=== PATIENT | male | born 1995 | race Caucasian/White ===

== ENCOUNTER 2019-09-07 13:33 | Emergency (ER) | payer SELFPAY ==
[2019-09-07 13:48] VITALS: BP 123/62; PULSE 56; RESP 16; TEMP 36.8; O2SAT 99; BMI 17.6
--- NOTE | 2019-09-07 14:03 | W.ED.EXTPRO ---
HPI - Extremity Problem General: Chief complaint: Extremity Problem,Nontraumatic Stated complaint: Right knee pain Time Seen by Provider: 09/07/19 14:03 Source: patient Mode of arrival: ambulatory Limitations: no limitations History of Present Illness: HPI Narrative: Patient comes in today with complaints of right knee pain. Patient reports he does not recall any injury. 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 Patient appears well. Patient appears in no acute distress. Patient appears in mild to moderate pain. Review of Systems General: Reports: 10 or more systems reviewed and unremarkable except in HPI and below Musc: Reports: joint pain PFSH ED PFSH: Statuses (acute, chronic, etc) shown below reflect problem list status as previously entered and may not be historically accurate Social History Smoking and tobacco status: current every day smoker Physical Exam Const: COMMON NORMALS: no apparent distress and oriented x3 GENERAL APPEARANCE: cooperative HENMT: COMMON NORMALS: normocephalic, external ears normal, EAC's normal, TM's normal bilaterally and external nose normal HEAD & SCALP: normal to inspection and normocephalic FACE & SINUS: normal facial exam NOSE: external nose normal GENERAL EAR: hearing not grossly impaired EXTERNAL EAR: Yes external ears normal EXTERNAL AUDITORY CANAL: EAC's normal TYMPANIC MEMBRANE: TM's normal bilaterally MOUTH: oral and palatal mucosa normal THROAT: posterior oropharynx normal Eye: COMMON NORMALS: PERRL and EOMs intact bilaterally PUPIL: Yes PERRL Neck/C-Spine: COMMON NORMALS: full ROM and no lymphadenopathy Lymph: LYMPHATIC: no lymphedema noted Chest: COMMONS NORMALS: inspection of chest normal and palpation of chest normal Resp: COMMON NORMALS: normal respiratory effort and clear to auscultation bilaterally AUSCULTATION: clear to auscultation bilaterally Cardio: COMMON NORMALS: regular rate and regular rhythm RATE: regular rate RHYTHM: regular rhythm GI: COMMON NORMALS: normal to inspection, nondistended, normoactive bowel sounds and non-tender : COMMON NORMALS: Yes no CVA tenderness BLADDER/KIDNEY EXAM: Yes no CVA tenderness Back/Pelvis: COMMON NORMALS: no CVA tenderness and thoracic and lumbar spine normal to inspection Extremity: COMMON NORMALS: normal to inspection GENERAL: No edema RIGHT LOWER EXTREMITY: Yes knee joint (lateral knee pain) Neuro: COMMON NORMALS: oriented x3, moves all extremities and no focal motor deficits Psych: COMMON NORMALS: mental status grossly normal and cooperative Skin: COMMON NORMALS: no rashes or lesions noted GENERAL SKIN EXAM: no rashes or lesions noted Course Vital Signs: Vital signs: Vital Signs Temperature 97.7 F 09/07/19 15:14 Pulse Rate 66 09/07/19 15:14 Respiratory Rate 16 09/07/19 15:14 Blood Pressure 110/72 09/07/19 15:14 Pulse Oximetry 98 09/07/19 15:14 MDM - Extremity (Nontraumatic) MDM Narrative: Medical decision making narrative: Patient comes in today with right knee pain. On exam we note palpation of the lateral right knee joint line is tender. Patient has good range of motion but is limited on flexion and extension. Distal pulses are normal. No obvious swelling or redness is noted. Differential diagnosis includes strain or sprain, tendinitis, meniscal injury, contusion. X-ray noted no significant abnormality. Reviewed exam with patient recommended treatment with diclofenac and acetaminophen. Recommend patient keep active as much as possible and reassured patient that most pain will resolve in 7 to 10 days. Patient reports understanding and agreed to plan. Discharge Plan Discharge Patient Disposition: Home, Self-Care Clinical Impression: Knee pain, right Qualifiers: Chronicity: acute Qualified Code(s): M25.561 - Pain in right knee Condition: Stable Prescriptions: New diclofenac sodium 75 mg tablet,delayed release (DR/EC) 75 mg PO BID Qty: 20 RF: 0 Discharge Orders: Discharge Order (Routine); Ordered 09/07/19 Ordered By: Dionisio Griffin Discharge Diet: Usual diet Discharge Activity: Increase activity as tolerated Patient Instructions: Knee Pain (ED) Activity Restrictions/Additional Instructions: Activity as tolerated Acetaminophen for further pain relief Ice and heat for further comfort Take medication as directed Do no use ibuprofen with diclofenac Follow-up with primary care in one week Discharge Date/Time: 09/07/19 15:54 Coding Level of Care Code ED Respiratory Therapist Assistant for Pablo Garnett Exam Problem Focused
[2019-09-07 14:17] VITALS: BP 114/73; PULSE 56; RESP 16; TEMP 36.6; O2SAT 98
--- NOTE | 2019-09-07 14:30 | XR_ITS ---
WS: [id number] Right knee, 3 views, 09/07/2019 Clinical Data: pain Comparison: None. Findings: No fractures or dislocations are seen. The joint spaces are normal. The patella is intact. The soft t issues are unremarkable. XR/XR knee RT 3V* [id number] Impression: Negative right knee.
[2019-09-07 14:35] VITALS: PULSE 56
[2019-09-07 15:14] VITALS: BP 110/72; PULSE 66; RESP 16; TEMP 36.5; O2SAT 98
== END 2019-09-07 15:54 | disposition home or self-care (01) ==
PROVIDERS: Emergency Provider Nurse Practitioner Family
DX: M25.561 Pain in right knee (principal); F17.210 Nicotine dependence, cigarettes, uncomplicated
CPT/HCPCS: 73562; 99281; 99282

== ENCOUNTER 2021-06-05 16:56 | Inpatient (IN) | payer SELFPAY ==
[2021-06-05 17:17] VITALS: PULSE 54; RESP 16; TEMP 36.8; O2SAT 99
--- NOTE | 2021-06-05 17:26 | W.ED.GENADLT ---
HPI - General Adult General: Chief complaint: Psychiatric Symptoms Stated complaint: LAC R INDEX FINGER Time Seen by Provider: 06/05/21 17:24 History of Present Illness: HPI narrative: HPI: [26]yo patient w/ hx of depression and wrist cutting presenting for SI. On arrival, the patient is AAOx3 and cooperative with my evaluation. No focal complaints of chest pain, shortness of breath, palpitations, N/V, focal GI/ complaints. No complaints of hallucinations. Onset: chronic Duration: ongoing Location: home Severity: severe Review of Systems Narrative: Constitutional: No fever, no chills. HEENT: No vision changes CV: No chest pain, no palpitations PULM: No productive cough, no dyspnea. GI: No abdominal pain, no N/V/D. : No dysuria MSKEL: No muscle pain SKIN: No new rashes, no lesions. NEURO: No headache, no focal weakness. HEME: No visible bruises PSYCH: Normal mood, +SI PFSH ED PFSH: Social History Smoking and tobacco status: current every day smoker Physical Exam Narrative: EXAM NARRATIVE: Head: Atraumatic Eyes: PERRL, conjunctiva without injection, eyes tracking ENT: Mucous membrane moist NECK: Supple without lymphadenopathy LUNGS: LCTAB CV: RRR ABDOMEN: Soft, nontender EXTREMITY: Normal ROM SKIN: No rash or erythema NEURO: Awake and alert. No focal weakness PSYCH: Cooperative mood and affect. Course Vital Signs: Vital signs: Vital Signs Temperature 98.2 F 06/05/21 17:17 Pulse Rate 54 L 06/05/21 17:17 Respiratory Rate 16 06/05/21 17:17 Pulse Oximetry 99 06/05/21 17:17 MDM - General Adult MDM Narrative: Medical decision making narrative: 26yo patient w/ hx of depression and self cutting presenting for SI. HDS, exam within normal limit Thoughts are linear and organized, and the patient has no AH/VH, or HI. Clinically the patient displays no overt toxidrome; they are well appearing, with low suspicion for toxic ingestion given history and exam. Symptoms unlikely 2/2 anemia, hypothyroidism, infection, or ICH. Workup: CBC, CMP, Lipase, salicylate/tylenol, UDS Lab findings: wnl [6:30pm] On reassessment, labs and workup wnl. Patient is hemodynamically stable with no acute medical complaints. Case discussed with psychiatric provider Dr. Loya at [facility] psych inpatient with recommendation for admission Disposition: Psych Discharge Plan Discharge Patient Disposition: Admitted As Inpatient Clinical Impression: Suicidal ideations Condition: Stable Coding Level of Care Code ED Med Spa Manager for Pablo Garnett
[2021-06-05 17:57] VITALS: BP 121/78; PULSE 58; RESP 16; O2SAT 98
[2021-06-05 18:02] LABS: Basophils # 0.1 10^3/uL (0.0-0.1); Basophils % 0.7 %; Eosinophils # 0.1 10^3/uL (0.0-0.8); Eosinophils % 1.8 %; Hematocrit 39.5 % (42.0-52.0); Hemoglobin 13.9 g/dL (11.7-16.6); Lymphocytes # 2.4 10^3/uL (0.8-4.8); Lymphocytes % 30.9 %; Mean Corpuscular HGB Conc 35.2 g/dL (30.0-36.0); Mean Corpuscular Hemoglobin 32.5 pg (28.0-34.0); Mean Corpuscular Volume 92.3 fl (80-94); Mean Platelet Volume 9.8 fL (7.4-10.4); Monocytes # 0.5 10^3/uL (0.2-0.9); Monocytes % 6.5 %; Neutrophils # 4.59 10^3/uL (1.8-7.7); Neutrophils % 59.7 %; Nucleated Red Blood Cells % 0 %; Platelet Count 226 10^3/cmm (130-400); Red Blood Count 4.28 10^6/uL (4.1-5.3); Red Cell Distribution Width 12.2 % (12.1-15.1); White Blood Count 7.7 10^3/uL (4.0-10.0)
[2021-06-05 18:13] LABS: Amphetamines Screen Urine Negative (Negative); Barbiturates Screen Urine Negative (Negative); Benzodiazepines Screen Urine Negative (Negative); Cocaine Screen Urine Negative (Negative); Opiate Screen Urine Negative (Negative); PCP Screen Urine Negative (Negative); THC Screen Urine Positive (Negative)
[2021-06-05 18:19] LABS: Anion Gap 14.6 (5-19); Blood Urea Nitrogen 16 mg/dL (6-20); Calcium 9.3 mg/dL (8.5-10.5); Carbon Dioxide 26 mmol/L (22-29); Chloride 103 mmol/L (98-107); Glomerular Filtration Rate 161.6 mL/min (90-130); Glucose 80 mg/dL (65-115); Osmolality Calculated 290 mOsm/kg (285-295); Potassium 3.6 mmol/L (3.5-5.1); Sodium 140 mmol/L (136-145)
[2021-06-05 18:20] LABS: Acetaminophen < 5.0 ug/mL (10-30); Salicylate < 0.3 mg/dL (3-10)
[2021-06-05] MEDS: LORazepam 1 mg Tablet PO (18:59)
[2021-06-06 00:01] VITALS: BP 128/78; PULSE 78; RESP 18; O2SAT 99
--- NOTE | 2021-06-06 01:38 | PC.ADMIT ---
[address] Admission Note: The patient,Chucho Capellan,26 y/o, was given written information regarding hospital policies, unit procedures and contact persons. Patient's smoking status: current every day smoker. Vital Signs - 8 hr 06/05/21 17:57 06/06/21 00:01 Pulse Rate 58 L 78 Respiratory Rate 16 18 Blood Pressure 121/78 128/78 Pulse Oximetry 98 99 [26]yo patient w/ hx of depression and wrist cutting presenting for SI. On arrival, the patient is AAOx3 and cooperative with my evaluation. No focal complaints of chest pain, shortness of breath, palpitations, N/V, focal GI/ complaints. No complaints of hallucinations. Upon assessment patient has poor eye contact, is alert/oriented x4. Poor hygiene. Patient has flat affect, rates depression 9, anxiety 7. Denies any SI/HI, a/v hallucinations. Patient states he has had increased depression and SI for the last 2 months. He states his father was diagnosed with stage 4 CA. Patient states he has seen a therapist as an outpatient for quite some time but he has never been prescribed any medications for depression. He states he was diagnosed as Bipolar a few months ago. Patient reports that earlier tonight he used a razor to make some superficial lacerations to his right wrist and then afterward accidentally cut his right index finger. He rates the pain 7 to right index finger. He states that his is his support system. They have 3 children under the age of 5. Patient works as a night shift manager at [employer] and his stays home with the children. He reports that approx 8 yrs ago he tried to hang himself with a belt in his closet and the pole broke. He also states that 10 yrs ago he put a gun in his mouth wanting to commit suicide. Patient has never had an admission to a psychiatric facility. Skin assessment unremarkable other than superficial lacs to right anterior forearm. Patient has bandaid on right index finger. Patient offered snack and drink, he declined and retired to bed. Will continue to monitor and follow plan of care. q 15 min safety checks per protocol.
[2021-06-06 06:00] VITALS: BP 119/76; PULSE 83; RESP 18; TEMP 36.7; O2SAT 98
[2021-06-06] MEDS: nicotine 2 mg Gum BUCCAL ×6 (08:35→20:31)
--- NOTE | 2021-06-06 13:38 | NPU.GN ---
[facility] Group Topic:Dice Breaker Psych Education General Mood of Group: Chucho did attend and participate in group this morning. Chucho seemed to enjoy group and socialized with this fiction and nonfiction prose writer and others in group. Chucho seems as though he has the willingness and drive to get better for his children and self and signed up for [facility] services with [facility] the aide of this fiction and nonfiction prose writer.
[2021-06-06 14:00] VITALS: BP 127/82; PULSE 72; RESP 18; TEMP 36.7; O2SAT 98
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
[2021-06-06] MEDS: trazodone 50 mg Tablet PO (20:30)
[2021-06-06 21:58] VITALS: BP 117/64; PULSE 70; RESP 17; TEMP 36.6; O2SAT 99
--- NOTE | 2021-06-06 23:29 | PC.NURSE ---
Upon assessment patient in day room playing board game with peers. Patient has good eye contact, is smiling and friendly. Patient denies any depression, rates anxiety 6. Denies any SI/HI, hallucinations. He states he did attend group today and is feeling much better after talking to his on the phone a few times today. Patient states he plans to see a therapist as an outpatient once he is discharged. He states he is looking forward to going home. Will continue to monitor and follow plan of care. Q 15 min safety checks per protocol.
[2021-06-07 06:00] VITALS: BP 118/72; PULSE 67; RESP 17; TEMP 36.7; O2SAT 98
[2021-06-07] MEDS: nicotine 2 mg Gum BUCCAL ×7 (06:23→19:20)
[2021-06-07] MEDS: hyDROXYzine 25 mg Capsule 50 MG PO (08:12)
[2021-06-07 14:00] VITALS: BP 118/72; PULSE 67; RESP 17; TEMP 36.7; O2SAT 98
[2021-06-07] MEDS: OLANZapine 5 mg ODT PO (16:28)
--- NOTE | 2021-06-07 17:06 | PC.NURSE ---
Patient gave staff permission to speak with his mother. Mother states she doesn't have concerns about patient being discharged. states she does not feel he will hurt anyone and that they have a good relationship and she feels he will reach out to her if/when he feels depressed again. stated again she had no fears or concerns about him being discharged.
[2021-06-07] MEDS: haloperidol 5 mg Tablet PO (17:08)
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
[2021-06-07 19:05] VITALS: BP 118/72; PULSE 67; RESP 17; TEMP 36.7; O2SAT 98
== END 2021-06-07 19:33 | disposition home or self-care (01) | DRG 882 ==
LOC: ER 17:40 → NP 06-06 06:20
PROVIDERS: Admitting Provider Psychiatry & Neurology Psychiatry; Emergency Provider Emergency Medicine; Visit Provider Psychiatry & Neurology Psychiatry
DX: F43.25 Adjustment disorder with mixed disturbance of emotions and conduct (principal); R45.851 Suicidal ideations; F17.210 Nicotine dependence, cigarettes, uncomplicated; F12.90 Cannabis use, unspecified, uncomplicated; Z91.52 Personal history of nonsuicidal self-harm; Z81.8 Family history of other mental and behavioral disorders; Z62.810 Personal history of physical and sexual abuse in childhood
CPT/HCPCS: 80048; 80306; 80307; 85025; 97165; 99285

== ENCOUNTER → 2021-12-11 13:36 | Outpatient (BNVA) | payer OTHER, SELFPAY | PROVIDERS: Visit Provider Psychiatry & Neurology Psychiatry | DX: F33.2 Major depressive disorder, recurrent severe without psychotic features (principal); F41.9 Anxiety disorder, unspecified; Z79.899 Other long term (current) drug therapy | CPT/HCPCS: 80053; 80061; 83036; 84443; 85025 ==

== ENCOUNTER 2022-11-25 19:29 | Emergency (ER) | payer OTHER, SELFPAY ==
[2022-11-25 19:29] VITALS: BP 128/75; PULSE 69; RESP 19; TEMP 36.7; O2SAT 99; BMI 19.5
--- NOTE | 2022-11-25 19:38 | W.ED.DENTAL ---
HPI - Dental/Oral General: Chief complaint: Dental/Oral Stated complaint: Throat Pain Time Seen by Provider: 11/25/22 19:38 History of Present Illness: 27-year-old male patient comes in today for complaints of left lower jaw pain and swelling. Patient reports discomfort for the last 2 to 3 days. Patient comes in today due to increased swelling in the area. Patient is able to speak without difficulty. Patient is managing secretions well. Patient has a history of an arachnoid cyst but otherwise negative. Associated symptoms: Denies fever(s) Review of Systems General: Reports: 10 or more systems reviewed and unremarkable except in HPI and below Const: Denies: fever(s) ENMT: Reports: dental pain Resp: Denies: dyspnea GI: Denies: vomiting Musc: Denies: neck pain Skin/Breast: Denies: rash PFSH ED PFSH: Medical History Lost custody of children Social History Smoking and tobacco status: current every day smoker Physical Exam HENMT: HEAD & SCALP: other (Swelling left lower jaw area) MOUTH: other (Swelling lateral gingiva left lower jaw first molar) TEETH & GINGIVA: Yes caries (Carious tooth to the left first lower molar) Neck/C-Spine: COMMON NORMALS: full ROM Resp: COMMON NORMALS: normal respiratory effort and clear to auscultation bilaterally AUSCULTATION: clear to auscultation bilaterally Cardio: COMMON NORMALS: regular rate and regular rhythm RATE: regular rate RHYTHM: regular rhythm GI: COMMON NORMALS: non-tender Extremity: COMMON NORMALS: no pedal edema Skin: COMMON NORMALS: turgor normal GENERAL SKIN EXAM: turgor normal Course Vital Signs: Vital signs: Vital Signs Temperature 98.0 F 11/25/22 19:29 Pulse Rate 69 11/25/22 19:29 Respiratory Rate 19 H 11/25/22 19:29 Blood Pressure 128/75 11/25/22 19:29 Pulse Oximetry 99 11/25/22 19:29 Oxygen Delivery Me thod Room Air 11/25/22 19:29 MDM - Dental/Oral Medical Decision Making 27-year-old male patient comes in today for complaints of jaw pain and facial swelling. On exam patient has a carious tooth to the left lower first molar. Surrounding lateral gingival tissue is swollen and erythematous. Posterior pharynx is symmetrical, patient manages secretions well. Vital signs are normal. Differential diagnosis includes but not limited to dental caries, dental abscess, periodontal disease. Reviewed exam with patient with recommendations for treatment and follow-up. Patient was started on Augmentin for dental abscess. Patient was recommended use acetaminophen and/or ibuprofen to control pain. Use hydrocodone for severe pain. Patient was recommended to follow-up with dentist for definitive care. Patient reported understanding. Discharge Plan Discharge Patient Disposition: Home Clinical Impression: Dental abscess Condition: Stable Prescriptions: New hydrocodone-acetaminophen 5-325 mg tablet 1 tab PO Q8H PRN (Reason: pain) Qty: 6 0RF amoxicillin-pot clavulanate 875-125 mg tablet 1 tab PO BID Qty: 14 0RF No Action aripiprazole 5 mg tablet See Rx Instructions .ROUTE .COMPLEX 30 Days Qty: 30 3RF Rx Instructions: take a-half tab po q hs x 8 days then take a whole tab po q hs if tolerated Discharge Orders: Discharge ED (Routine); Ordered 11/25/22 Ordered By: Dionisio Griffin Discharge Diet: Usual diet Discharge Activity: Increase activity as tolerated Patient Instructions: Dental Abscess (ED), Opioid Safety Activity Restrictions/Additional Instructions: Take antibiotic as directed. Healthy diet and activity. Good oral hygiene. Ice or heat for further pain relief. Use acetaminophen and ibuprofen to control pain. Use hydrocodone for severe pain. Follow-up with dentist for definitive care. Coding Level of Care Code ED Transport Technician for Pablo Garnett
[2022-11-25] MEDS: HYDROcodone-acetaminophen 5-325 mg Tablet 1 TAB PO (20:23)
[2022-11-25] MEDS: amoxicillin-clav 875-125 mg Tablet 1 TAB PO (20:24)
--- NOTE | 2022-11-27 13:04 | DCPLANNER ---
customer account manager called patient due to no primary care physician - no answer at this time.
== END 2022-11-25 20:27 | disposition home or self-care (01) ==
PROVIDERS: Emergency Provider Nurse Practitioner Family
DX: K04.7 Periapical abscess without sinus (principal); F17.210 Nicotine dependence, cigarettes, uncomplicated
CPT/HCPCS: 99283

== ENCOUNTER 2023-06-01 11:01 | Emergency (ER) | payer SELFPAY ==
[2023-06-01 11:21] VITALS: BP 120/67; PULSE 52; RESP 18; TEMP 36.8; O2SAT 99; BMI 19.5
--- NOTE | 2023-06-01 12:51 | W.ED.EXTPRO ---
HPI - Extremity Problem General: Chief complaint: Extremity Problem,Nontraumatic Stated complaint: right arm pain Time Seen by Provider: 06/01/23 11:09 Source: patient Mode of arrival: ambulatory Limitations: no limitations History of Present Illness: Patient is a 28-year-old male who presents to ED today with complaint of pain around his right elbow. Patient states approximately 3 days ago on a Wednesday night he was arm wrestling. He denies injuring it during any type of arm wrestling match but states Wednesday morning he woke up with pain. Patient states yesterday he was picking up one of his kids when he immediately felt a pop/snap to his right elbow/AC region. He states since then he has been unable to flex the elbow. Denies swelling/ecchymosis. MD Complaint: extremity pain and joint pain Onset (ago): day(s) Pain Consistency: constant Location: right, upper extremity and elbow Radiation: none Relieving factors: immobilization Exacerbating factors: range of motion Associated symptoms: Reports no associated symptoms; Deny fever(s) Review of Systems Const: Denies: fever(s), chills, body aches, fatigue or malaise Musc: Reports: joint pain (R elbow) and limited range of motion; Denies: neck pain, back pain, joint swelling, joint redness, joint warmth, joint stiffness, muscle cramps, muscle weakness, decrease in muscle mass or deformity Neuro: Denies: numbness in extremities or sensory changes PFS ED PFSH: Medical History Lost custody of children Social History Smoking and tobacco/nicotine status: current every day tobacco/nicotine user Physical Exam Const: COMMON NORMALS: no acute distress, average body habitus, patient oriented x3, no limitations, alert and well nourished Extremity: COMMON NORMALS: capillary refill normal, no joint enlargement, no clubbing, cyanosis or edema, no calf tenderness and no pedal edema GENERAL: Yes normal exam except as noted RIGHT UPPER EXTREMITY: Yes elbow joint Right elbow: Yes palpation (TTP volar R elbow/radial head), Yes ROM (cannot flex R elbow against any form of resistance ), Yes neurovascular exam (normal) and Yes other (no obvious reverse kelli deformity noted) Neuro: COMMON NORMALS: patient oriented x3, moves all extremities, no focal motor deficits and no sensory deficits noted SENSORIUM/ORIENTATION: Yes alert Course Vital Signs: Vital signs: Vital Signs Temperature 98.2 F 06/01/23 11:21 Pulse Rate 60 06/01/23 13:47 Respiratory Rate 18 06/01/23 11:21 Blood Pressure 116/65 06/01/23 13:47 Pulse Oximetry 100 06/01/23 13:47 Oxygen Delivery Me thod Room Air 06/01/23 11:21 MDM - Extremity (Nontraumatic) Medical Decision Making XR negative. I think given history and exam I would be concerned for injury to his distal bicep. Will have him start doing compression wraps/NSAIDS and have him follow up with orthopedics. Lab Data Radiology Impressions Elbow X-Ray 06/01/23 12:58 IMPRESSION: No acute findings. All radiology interpretation(s) finalized by discharge Discharge Plan Discharge Patient Disposition: Home Clinical Impression: Tear of distal tendon of biceps Qualifiers: Encounter type: initial encounter Laterality: right Qualified Code(s): S46.211A - Strain of muscle, fascia and tendon of other parts of biceps, right arm, initial encounter Condition: Stable Prescriptions: New ibuprofen 600 mg tablet 600 mg PO Q6H PRN (Reason: pain) Qty: 20 0RF No Action amoxicillin-pot clavulanate 875-125 mg tablet 1 tab PO BID Qty: 20 0RF Discharge Orders: Discharge ED (Routine); Ordered 06/01/23 Ordered By: Alma Branch Referrals: Monique Carter NP [Primary Care Provider] - Activity Restrictions/Additional Instructions: As we discussed based on your exam today I suspect that you may have an injury to your distal bicep tendon. I have placed a referral with case management to get you set up with orthopedics for further evaluation for this. They should reach out to you later this week to set you up with this appointment. Coding Level of Care Code ED Residential Treatment Staff for Pablo Garnett
--- NOTE | 2023-06-01 12:58 | XRR_ITS ---
PROCEDURE INFORMATION: Exam: XR Right Elbow Exam date and time: 06/01/2023 1:03 PM Age: 28 years old Clinical indication: Injury or trauma; Other: Wrestling; Swelling (edema); Elbow; Right TECHNIQUE: Imaging protocol: Radiologic exam of the right elbow. Views: 3 or more views. COMPARISON: No relevant prior studies available. FINDINGS: Bones/joints: Normal. Soft tissues: Normal. XR/XR elbow RT min 3V* [id number] IMPRESSION: No acute findings.
[2023-06-01 13:47] VITALS: BP 116/65; PULSE 60; O2SAT 100
--- NOTE | 2023-06-02 08:00 | DCPLANNER ---
message sent to Ortho for a follow up on a distal bicep tear/rupture
== END 2023-06-01 13:49 | disposition home or self-care (01) ==
PROVIDERS: Emergency Provider Physician Assistant; PCP Nurse Practitioner Family
DX: S46.211A Strain of muscle, fascia and tendon of other parts of biceps, right arm, initial encounter (principal); Z72.0 Tobacco use; X50.9XXA Other and unspecified overexertion or strenuous movements or postures, initial encounter
CPT/HCPCS: 73080; 99283

== ENCOUNTER → 2023-10-05 13:21 | Outpatient (BNVA) | payer SELFPAY | PROVIDERS: PCP Nurse Practitioner Family; Visit Provider Family Medicine | DX: M79.642 Pain in left hand (principal) | CPT/HCPCS: 73130 ==

== ENCOUNTER → 2023-11-12 11:18 | Outpatient (BNVA) | payer OTHER, SELFPAY | PROVIDERS: PCP Nurse Practitioner Family; Visit Provider Nurse Practitioner | DX: Z79.899 Other long term (current) drug therapy (principal); F43.25 Adjustment disorder with mixed disturbance of emotions and conduct; F10.20 Alcohol dependence, uncomplicated; F12.20 Cannabis dependence, uncomplicated; Z72.0 Tobacco use; F31.81 Bipolar II disorder | CPT/HCPCS: 80061; 83036 ==

== ENCOUNTER 2025-07-30 12:17 | Emergency (ER) | payer SELFPAY ==
[2025-07-30 12:55] VITALS: BP 113/75; PULSE 59; RESP 18; TEMP 36.7; O2SAT 99; BMI 20.7
--- NOTE | 2025-07-30 13:06 | XR_ITS ---
WS: [id number] Right hand, 3 views, 07/30/2025 Clinical Data: trauma Comparison: Right hand, 12/03/2014 Findings: There is a fracture of the ungual tuft of the distal phalanx of the right fourth finger. No other fractures are seen. The joint spaces are normal. The soft tissues are normal. XR/XR hand RT min 3V* [id number] Impression: Fracture of the ungual tuft of the distal phalanx of the right fourth finger.
--- NOTE | 2025-07-30 13:06 | ED_ITS ---
HPI - Wound/Laceration General: Chief Complaint: Wound/Laceration Stated Complaint: R hand ring finger lac Time Seen by Provider: 07/30/25 13:06 History of Present Illness: 30-year-old male presents emergency room with after crush injury to the tip of his right fourth finger while he was moving some wood around. He states his tetanus was within the last 2 to 3 years. No other injury. Related Data Previous Rx's ?Medication ?Instructions ?Recorded quetiapine 300 mg tablet,extended 300 mg PO .HS #30 ta bs 11/12/23 release 24 hr (Seroquel XR) sulfamethoxazole 800 1 tab PO BID 5 days #10 tabs 07/30/25 mg-trimethoprim 160 mg tablet (Bactrim DS) Allergies Allergy/AdvReac Type Severity Reaction Status Date / Time No Known Allergies Allergy Verified 11/12/23 09:32 [facility] ED PFSH: Medical History Bipolar II disorder, moderate, depressed, with anxious distress Vapes nicotine containing substance Cannabis dependence Alcohol dependence On combination antipsychotic drug therapy Lost custody of children Social History Smoking and tobacco/nicotine status: current some day tobacco/nicotine user Alcohol intake: current Alcohol intake frequency: holidays/special occasions only Substance/Drug Use: never Physical Exam Extremity: OTHER: Examination of the right fourth finger. Mild crush injury no nail deformity partial avulsion of the skin full-thickness approximately 2 cm in total length. Procedures Laceration Laceration 1: Site: hand Side (If applicable): right (Fourth finger) Size (cm): 3 Description: linear Depth: simple, single layer Pre-repair: irrigated extensively Skin layer closed with: nylon Size (cm): 4-0 Number of sutures: 3 Technique: simple, interrupted Nerve Block Nerve Block 1: Time out performed: Yes Local Anesthetic: lidocaine 1% Amount of anesthesia used (mL): 4 Side: right (Fourth finger) Nerve Blocks: digital Procedure Successful: Yes Patient Tolerated Procedure: well Complications: none Course Vital Signs: Vital signs: Vital Signs Temperature 98.1 F 07/30/25 12:55 Pulse Rate 88 07/30/25 14:18 Respiratory Rate 17 07/30/25 14:18 Blood Pressure 136/79 07/30/25 14:18 Pulse Oximetry 99 07/30/25 14:18 MDM - Wound/Laceration Medical Decision Making Patient does have distal tuft fracture on the right fourth finger sutures placed wound approximated. Sutures to be removed in 7 to 10 days we will set him up for follow-up with orthopedics. Wound dressed. Frog splint applied. Apply topical antibiotic ointment to the wound once daily until sutures are removed. Lab Data Radiology Impressions Hand X-Ray 07/30/25 13:06 Impression: Fracture of the ungual tuft of the distal phalanx of the right fourth finger. All radiology interpretation(s) finalized by discharge Discharge Plan Discharge Patient Disposition: Home Clinical Impression: Laceration of right ring finger, Open fracture of tuft of distal phalanx of finger Condition: Stable Prescriptions: New sulfamethoxazole-trimethoprim [Bactrim DS] 800-160 mg tablet 1 tab PO BID 5 Days Qty: 10 0RF No Action quetiapine [Seroquel XR] 300 mg tablet extended release 24 hr 300 mg PO .HS Qty: 30 1RF Discharge Orders: Discharge ED (Routine); Ordered 07/30/25 Ordered By: Milo Carrera Referrals: Yanelis Dunham MD [Primary Care Provider, Family Practice] Discharge Diet: Usual diet Discharge Activity: Increase activity as tolerated Patient Instructions: Opioid Safety, Pain Management, Patient Portal & Yazmin Instructions Activity Restrictions/Additional Instructions: Thank you for choosing [facility] for your healthcare needs today. It is very important that you follow up as instructed or that you return to the Emergency Department should you have concerns or if your condition changes or worsens in any way. Emergency department visits are focused on emergent conditions, in some cases you may require further evaluation on an outpatient basis. You are seen emergency room after crush injury to your right fourth finger. There is a small fracture at the tip of the bone in that finger. Laceration was closed with sutures. The sutures should be removed in 7 to 10 days. Case management make arrangements for you to follow-up with orthopedics. Your primary care doctor can remove the sutures. You are given 5 days of oral antibiotics as well. Keep the splint on the fingertip until released by the orthopedic doctor. (Please note that included in your discharge packet is information concerning opioid safety and pain management. This information is given to all patients were discharged from the ER regardless of their discharge diagnosis or the medicines they usually take or are prescribed.) Print Language: Occitan Coding Level of Care Code ED Hospital Aides And Assistants Teacher for Baldog Tamir
[2025-07-30] MEDS: HYDROcodone-acetaminophen 5-325 mg Tablet 1 TAB PO (14:11)
[2025-07-30 14:18] VITALS: BP 136/79; PULSE 88; RESP 17; O2SAT 99
== END 2025-07-30 14:19 | disposition home or self-care (01) ==
PROVIDERS: Emergency Provider Family Medicine; PCP Family Medicine
DX: S62.634A Displaced fracture of distal phalanx of right ring finger, initial encounter for closed fracture (principal); S61.214A Laceration without foreign body of right ring finger without damage to nail, initial encounter; X58.XXXA Exposure to other specified factors, initial encounter; Z72.0 Tobacco use
CPT/HCPCS: 12002; 73130; 99283; J9999

== ENCOUNTER 2025-07-31 12:41 | Emergency (ER) | payer SELFPAY ==
[2025-07-31 12:54] VITALS: BP 114/79; PULSE 66; RESP 15; TEMP 36.6; O2SAT 98; BMI 20.7
--- NOTE | 2025-07-31 13:09 | ED_ITS ---
HPI - Extremity Problem General: Chief complaint: Extremity Injury, Upper Stated complaint: R ring finger pain Time Seen by Provider: 07/31/25 13:01 History of Present Illness: 30-year-old male presents emergency room complaining of pain and throbbing to his right finger. We have seen him yesterday he had a crush injury to the finger had a bit of a tuft fracture on the right fourth finger and had 3 sutures placed to approximate the skin edges. He is complaining of persistent pain. He has been wearing dressing with a frog splint over it. Related Data Previous Rx's ?Medication ?Instructions ?Recorded quetiapine 300 mg tablet,extended 300 mg PO .HS #30 ta bs 11/12/23 release 24 hr (Seroquel XR) sulfamethoxazole 800 1 tab PO BID 5 days #10 tabs 07/30/25 mg-trimethoprim 160 mg tablet (Bactrim DS) hydrocodone 5 mg-acetaminophen 325 1 tab PO Q6H PRN pa in #7 tabs 07/31/25 mg tablet Allergies Allergy/AdvReac Type Severity Reaction Status Date / Time No Known Allergies Allergy Verified 07/31/25 12:59 PFSH ED PFSH: Medical History Bipolar II disorder, moderate, depressed, with anxious distress Vapes nicotine containing substance Cannabis dependence Alcohol dependence On combination antipsychotic drug therapy Lost custody of children Social History Smoking and tobacco/nicotine status: current some day tobacco/nicotine user Alcohol intake: current Alcohol intake frequency: holidays/special occasions only Substance/Drug Use: never Physical Exam Extremity: OTHER: Bandage removed wound looks well-approximated. There is no drainage sutures in place in good position. No deformity of the fingertip. Course Vital Signs: Vital signs: Vital Signs Temperature 97.9 F 07/31/25 12:54 Pulse Rate 66 07/31/25 12:54 Respiratory Rate 15 07/31/25 12:54 Blood Pressure 114/79 07/31/25 12:54 Pulse Oximetry 98 07/31/25 12:54 Oxygen Delivery Me thod Room Air 07/31/25 12:54 MDM - Extremity (Nontraumatic) Medical Decision Making Continue wound care instructions given hydrocodone advised to elevate the fingertip is much as possible. Discharged home with 7 tablets of hydrocodone given 1 here. Follow-up with Ortho as planned sutures to be removed in 7 to 10 days. Change dressing and apply [id number] topical antibiotic once daily. Medical Records I reviewed the patient's medical records. No radiology studies performed this visit Discharge Plan Discharge Patient Disposition: Home Clinical Impression: Laceration of right ring finger, Open fracture of tuft of distal phalanx of finger Condition: Stable Prescriptions: New hydrocodone-acetaminophen 5-325 mg tablet 1 tab PO Q6H PRN (Reason: pain) Qty: 7 0RF No Action quetiapine [Seroquel XR] 300 mg tablet extended release 24 hr 300 mg PO .HS Qty: 30 1RF sulfamethoxazole-trimethoprim [Bactrim DS] 800-160 mg tablet 1 tab PO BID 5 Days Qty: 10 0RF Discharge Orders: Discharge ED (Routine); Ordered 07/31/25 Ordered By: Milo Carrera Referrals: Yanelis Dunham MD [Primary Care Provider, Family Practice] Discharge Diet: Usual diet Discharge Activity: Limit activity as instructed Patient Instructions: Opioid Safety, Pain Management, Patient Portal & Yazmin Instructions Activity Restrictions/Additional Instructions: [facility]. It is very important that you follow up as instructed or that you return to the Emergency Department should you have concerns or if your condition changes or worsens in any way. Emergency department visits are focused on emergent conditions, in some cases you may require further evaluation on an outpatient basis. You are seen in the emergency room with complaints of pain to the tip of your right fourth finger which you had fractured yesterday. Very important to keep the finger elevated to prevent worsening pain if it is in a continuous dependent position it will throb and cause more discomfort. Continue the antibiotics you are given 7 tablets of hydrocodone to use as needed. You can take ibuprofen along with this as well. Continue to follow-up with orthopedics as previously scheduled. Apply topical antibiotic ointment to the wound once a day and change the dressing. Sutures to be removed in 7 to 10 days (Please note that included in your discharge packet is information concerning opioid safety and pain management. This information is given to all patients were discharged from the ER regardless of their discharge diagnosis or the medicines they usually take or are prescribed.) Print Language: French Coding Level of Care Code ED Clerk Television Production for Pablo Garnett
[2025-07-31] MEDS: HYDROcodone-acetaminophen 5-325 mg Tablet 1 TAB PO (13:27)
[2025-07-31] MEDS: bacitracin ointment Pkt 1 EACH TOPICAL (13:54)
== END 2025-07-31 13:55 | disposition home or self-care (01) ==
PROVIDERS: Emergency Provider Family Medicine; PCP Family Medicine
DX: S62.634D Displaced fracture of distal phalanx of right ring finger, subsequent encounter for fracture with routine healing (principal); S61.214D Laceration without foreign body of right ring finger without damage to nail, subsequent encounter; Z72.0 Tobacco use; X58.XXXD Exposure to other specified factors, subsequent encounter
CPT/HCPCS: 99283; J9999